=== PATIENT | male | born 1995 | race Caucasian/White ===

== ENCOUNTER 2020-12-23 11:50 | Day surgery (SDC) | payer BC ==
[2020-12-23] MEDS ORDERED: Ringers Lactate 1,000 ML IV ONE (12:28)
[2020-12-23] MEDS ORDERED: CEFAZOLIN/SWI 1gm 1 GM/10 ML SYR ONE (12:28)
[2020-12-23] MEDS ORDERED: BUPIVACA 0.25%/EPI 0.0005% MDV 50 ML VIAL ONE (13:05)
[2020-12-23] MEDS ORDERED: FENTANYL CITR 100 MCG/2 ML ONE (14:22)
[2020-12-23] MEDS ORDERED: propofoL 200 MG/20 ML VIAL IV ONE (14:22)
[2020-12-23] MEDS ORDERED: MIDAZOLAM HCL 2 MG/2 ML INJ ONE (14:22)
[2020-12-23] MEDS ORDERED: LIDOCAINE 2% MPF 5 ML VIAL ONE (14:23)
[2020-12-23] MEDS ORDERED: dexAMETHasone 10 MG/ML VIAL ONE (14:23)
[2020-12-23] MEDS ORDERED: SODIUM HYPOCHLORITE 0.25% 473 ML TOP ONE (14:30)
--- NOTE | 2020-12-23 14:53 | P.OP ---
Preoperative diagnosis: Infected Sebaceous Cyst of upper back Postoperative diagnosis: Infected Sebaceous Cyst of upper back Primary procedure: Wide Local Excision of Infected Sebaceous Cyst of upper back Anesthesia: GETA + Local Estimated blood loss: <5cc Specimen: Debridement tissue, Cultures sent for aerobic and anaerobic Findings: 5cm x 4cm down to fascia over muscle infected sebaceous cyst Complications: None Transferred to: Recovery Room Condition: Good
[2020-12-23] MEDS ORDERED: KETOROLAC 30 MG/ML INJ ONE (15:05)
[2020-12-23] MEDS ORDERED: MEPERIDINE HCL 25 MG/ML SYR ONE (15:45)
[2020-12-23 15:51] VITALS: O2SAT 96
[2020-12-23] MEDS ORDERED: HYDROCODONE/APAP 7.5/325 MG TAB ONE (16:13)
[2020-12-23 17:17] VITALS: BP 109/59; TEMP 96.5
--- NOTE | 2020-12-23 23:21 | OP ---
Date of Procedure: 12/23/2020 Surgeon: Antonia Ortiz MD, Preoperative Diagnosis: Infected sebaceous cyst, upper back. Postoperative Diagnosis: Infected sebaceous cyst, upper back. Procedure Performed: Wide local excision of infected sebaceous cyst of upper back. Anesthesia: General endotracheal plus local with 0.25% Marcaine. Estimated Fluid Loss: 5 cc. Specimen: Debridement tissue and culture sent for both aerobic and anaerobic speciation. Findings: 5 cm x 4 cm infected sebaceous cyst down to fascia overlying the muscle, abscess and infec antonia tissue were present including sebaceous material. Complications: None. Disposition: The patient was transferred to recovery room in good condition. Procedure In Detail: After informed consent was obtained, the patient was brought to the operating r oom, prepped and draped in the usual sterile fashion. After adequate anesthesia, a curvilinear incis ion was made for approximately 5 cm in length down through subcutaneous tissues to expose an infected sebaceous cyst. Sebaceous material was emanating and spontaneously draining from the skin overlying this. All of this infected tissue was removed and culture was performed at this time for both aerob ic and anaerobic speciation of this infected sebaceous abscess cyst. After this was sent off, the cy st was removed in its entirety, extended for approximately 5 cm x 4 cm down to the muscle overlying t he fascia. After all this tissue was removed, it was sent off for pathologic examination as debridem ent tissue. The area was copiously irrigated multiple times until completely clear. Hemostasis was achieved with electrocautery and the wound was then packed with Dakin solution and sterile dressing w as placed over top. The patient tolerated the procedure well without evidence of complication and tr ansferred to PACU in good condition. All counts were correct at the end of the case. TK/MODL Voice ID: [id number] Report ID: [id number]
== END 2020-12-23 16:55 | disposition home or self-care (01) ==
LOC: OR 11:50
PROVIDERS: ATTEND Surgery
PROC: 0JB70ZZ Excision of Back Subcutaneous Tissue and Fascia, Open Approach (ICD-10-PCS; principal; 2020-12-23 13:45)
DX: L72.0 Epidermal cyst (principal); I96 Gangrene, not elsewhere classified; Z20.822 Contact with and (suspected) exposure to COVID-19
CPT/HCPCS: 87070; 87075; 87205; 88304; J0690; J1100; J2175; J2250; J2704; J3010; J7120; U0002